=== PATIENT | male | born 2000 | race Caucasian/White ===

== ENCOUNTER 2024-08-28 23:09 | Emergency (ER) | payer BC, SELFPAY ==
[2024-08-28 23:10] VITALS: BMI 21.7
[2024-08-28 23:18] VITALS: BP 109/66; PULSE 79; RESP 18; TEMP 36.7; O2SAT 99
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
[2024-08-29] MEDS: HYDROcodone/APAP 7.5/325 TABLET 1 TAB PO (00:49)
[2024-08-29] MEDS: KETOROLAC INJ 60 MG/2 ML VIAL 30 MG IM (00:49)
== END 2024-08-29 02:27 | disposition home or self-care (01) ==
PROVIDERS: Emergency Provider Emergency Medicine
DX: M89.8X8 Other specified disorders of bone, other site (principal)
CPT/HCPCS: 73000; 96372; 99283; J1885; A9270

== ENCOUNTER → 2024-09-10 | Outpatient (CLI) | payer BC, SELFPAY ==
--- NOTE | 2024-09-10 10:56 | XR_ITS ---
Examination: Clavicle 2 views, left Technique: Clavicle AP, angled up AP, 2 views Exam date and time: September 10, 2024 1107 hours INDICATIONS: Status post operative reduction internal fixation clavicle fracture FINDINGS: Operative reduction internal fixation fracture left clavicle with satisfactory alignment Sideplate and screw satisfactory position IMPRESSION: Operative reduction internal fixation fracture left clavicle with satisfactory alignment
== END | disposition home or self-care (01) ==
LOC: CDIM 10:28
PROVIDERS: PCP Family Medicine; Referring Provider Orthopaedic Surgery; Visit Provider Orthopaedic Surgery
DX: S42.022A Displaced fracture of shaft of left clavicle, initial encounter for closed fracture (principal); X58.XXXA Exposure to other specified factors, initial encounter
CPT/HCPCS: 73000

== ENCOUNTER → 2024-11-09 | Outpatient (CLI) | payer BC, SELFPAY ==
--- NOTE | 2024-11-09 14:59 | XR_ITS ---
Examination: Clavicle 2 views, left Technique: Clavicle AP, angled up AP, 2 views Exam date and time: November 09, 2024 1500 hours Comparison September 10, 2024, August 29, 2024 INDICATIONS: Postop reduction internal fixation acute comminuted displaced clavicular left shaft fractures August 28, 2024 FINDINGS: Significant healing fractures left clavicle with satisfactory alignment IMPRESSION: Significant healing fractures left clavicle with satisfactory alignment
== END | disposition home or self-care (01) ==
PROVIDERS: PCP Family Medicine; Referring Provider Orthopaedic Surgery; Visit Provider Orthopaedic Surgery
DX: S42.022D Displaced fracture of shaft of left clavicle, subsequent encounter for fracture with routine healing (principal); X58.XXXD Exposure to other specified factors, subsequent encounter
CPT/HCPCS: 73000